=== PATIENT | male | born 1955 | race Hispanic/Latino ===

== ENCOUNTER 2017-10-06 11:40 | Emergency (ER) | payer BC ==
[2017-10-06 11:53] VITALS: BP 130/78; PULSE 76; RESP 16; TEMP 98.8; O2SAT 97; BMI 29.2
[2017-10-06] MEDS ORDERED: diaZEpam 10 mg/2 ml Inj IM STA (12:51)
--- NOTE | 2017-10-06 13:08 | ED PDOC ---
HPI: Back Time Seen by Provider: 10/06/17 12:30 Chief Complaint (Nursing): Back Pain Chief Complaint (Provider): Back Pain History Per: Patient History/Exam Limitations: no limitations Onset/Duration Of Symptoms: Days (x3) Current Symptoms Are (Timing): Still Present Additional Complaint(s): 62 year old male with medical history of chronic degenerative disc disease, who presents to the emergency department with a complaint of lower right-sided back pain worsen in the last 3 days which he noted started after he went skiing and snowboarding 3 days ago. Denied any fever, chills, nausea, vomiting, constipation, diarrhea, difficulty urinating, bloody urine, weakness, tingling sensation, back trauma or injury. Patient stated alleviation of symptoms after Toradol and Valium given in past for ongoing intermittent spasms. PMD: Dr. Martinez Past Medical History Reviewed: Historical Data, Nursing Documentation, Vital Signs Vital Signs: Last Vital Signs Temp 98.8 F 10/06/17 11:53 Pulse 76 10/06/17 11:53 Resp 16 10/06/17 11:53 BP 130/78 10/06/17 11:53 Pulse Ox 97 10/06/17 11:53 - Medical History PMH: Back Problems (Degenerative disc disease) - Surgical History Surgical History: No Surg Hx - Family History Family History: States: Unknown Family Hx - Social History Current smoker - smoking cessation education provided: No Ex-Smoker (has not smoked in the last 12 months): No Alcohol: None Drugs: Denies - Home Medications Home Medications: Ambulatory Orders Medication Instructions Recorded Diazepam [Valium] 5 mg PO Q8 #3 tab 01/23/16 Naproxen [Naprosyn] 500 mg PO Q12H #20 tab 01/23/16 Meloxicam [Mobic] 15 mg PO DAILY #20 tab 10/06/17 diaZEpam [Valium] 5 mg PO BID PRN #10 tab 10/06/17 - Allergies Allergies/Adverse Reactions: Allergies Allergy/AdvReac Type Severity Reaction Status Date / Time No Known Allergies Allergy Verified 10/06/17 11:51 Review of Systems ROS Statement: Except As Marked, All Systems Reviewed And Found Negative Constitutional: Negative for: Fever, Chills Gastrointestinal: Negative for: Nausea, Vomiting, Diarrhea, Constipation Genitourinary Male: Negative for: Dysuria, Incontinence, Hematuria Musculoskeletal: Positive for: Back Pain (lower right). Negative for: Other ( back trauma or injury) Neurological: Negative for: Weakness (or paresthesia) Physical Exam - Reviewed Nursing Documentation Reviewed: Yes Vital Signs Reviewed: Yes - Physical Exam Appears: Positive for: Non-toxic, Uncomfortable, In Acute Distress (mild). Negative for: No Acute Distress Skin: Positive for: Normal Color, Warm, Dry Neck: Positive for: Normal, Supple Cardiovascular/Chest: Positive for: Regular Rate, Rhythm, Chest Non Tender Respiratory: Positive for: Normal Breath Sounds. Negative for: Decreased Breath Sounds, Rhonchi, Wheezing, Respiratory Distress Gastrointestinal/Abdominal: Positive for: Normal Exam, Soft. Negative for: Tenderness, Mass, Guarding, Rebound Back: Positive for: Muscle Spasm (right-sided), Other (+right-sided paralumbar tenderness, negative straight leg raises). Negative for: Normal Inspection, L CVA Tenderness, R CVA Tenderness, Vertebral Tenderness Extremity: Positive for: Normal ROM (upper/lower). 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 Negative for: Motor/Sensory Deficits - ECG O2 Sat by Pulse Oximetry: 97 (RA) Pulse Ox Interpretation: Normal Medical Decision Making Medical Decision Making: Initial Impression: Back pain Initial Plan: * Toradol 60mg IM * Valium 5mg PO On reevaluation, the patient reports improvement of symptoms. Patient states that he feels comfortable being discharged. Patient observed to be ambulating in the ER in no acute distress with a normal gait. Patient advised to follow up with primary care physician in 1-2 days without fail. Advised to take medication as prescribed. Return to the emergency room at any time for any new or worsening symptoms. Patient states he fully agrees with and understands discharge instructions. States that he agrees with the plan and disposition. Verbalized and repeated discharge instructions and plan. I have given the patient opportunity to ask any additional questions. Scribe Attestation: Documented by Ruby Al, acting as a scribe for Ana Lemus PA-C. Provider Scribe Attestation: All medical record entries made by the Scribe were at my direction and personally dictated by me. I have reviewed the chart and agree that the record accurately reflects my personal performance of the history, physical exam, medical decision making, and the department course for this patient. I have also personally directed, reviewed, and agree with the discharge instructions and disposition. Disposition - Clinical Impression Clinical Impression: Low back pain - Patient ED Disposition Is Patient to be Admitted: No Counseled Patient/Family Regarding: Diagnosis, Need For Followup, Rx Given - Disposition Disposition: Routine/Home Disposition Time: 13:06 Condition: STABLE Additional Instructions: Thank you for letting us take care of you today. You were treated for low back pain. The emergency medical care you received today was directed at your acute symptoms. If you were prescribed any medication, please fill it and take as directed. It may take several days for your symptoms to resolve. Return to the Emergency Department if your symptoms worsen, do not improve, or if you have any other problems. Please contact your doctor in 2 days for re-evaluation and follow up. Bring any paperwork you were given at discharge with you along with any medications you are taking to your follow up visit. Our treatment cannot replace ongoing medical care by a primary care provider (PCP) outside of the emergency department. Thank you for allowing the [facility] team to be part of your care today. Prescriptions: diaZEpam [Valium] 5 mg PO BID PRN #10 tab PRN Reason: Muscle Spasm Meloxicam [Mobic] 15 mg PO DAILY #20 tab Instructions: Acute Low Back Pain (ED) Forms: [employer] ([place]) Print Language: JAPANESE
== END 2017-10-06 13:33 | disposition home or self-care (01) ==
LOC: H.ER 11:40
DX: M54.5 Low back pain (principal)
CPT/HCPCS: 96372; 99282; J1885